=== PATIENT | male | born 1975 | race Caucasian/White ===

== ENCOUNTER 2024-08-19 19:22 | Emergency (ER) | payer SELFPAY ==
[~2024-08-19] VITALS: Ht 193 cm; Wt 104.0 kg
[2024-08-19] MEDS ORDERED: DIPHTH,PERTUSS(ACELL),TET VAC 0.5 ML SYRINGE IM ONE (19:45)
[2024-08-19] MEDS ORDERED: AMOX TR-K CLV1 EAC1 PO ×2 (20:54→21:05)
[2024-08-19] MEDS ORDERED: AMOXICILLIN/CLAVULANATE K 875 MG HOME.PACK PO ONE (21:00)
[2024-08-19] MEDS ORDERED: HYDROCODONE BIT/ACETAMINOPHEN 5/325 MG 1 TAB HOME.PACK PO ONE (21:00)
[2024-08-19 21:17] VITALS: BP 107/68
== END 2024-08-19 21:20 | disposition home or self-care (01) ==
LOC: ED 19:22
DX: S61.313A Laceration without foreign body of left middle finger with damage to nail, initial encounter (principal); W23.0XXA Caught, crushed, jammed, or pinched between moving objects, initial encounter
CPT/HCPCS: 12031; 73140; 90471; 90715; 99283-25; A9270